=== PATIENT | male | born 1995 | race Caucasian/White ===

== ENCOUNTER 2019-07-20 09:10 | Inpatient (IN) | payer OTHER ==
[2019-07-20] MEDS ORDERED: SODIUM CHLORIDE 0.9% 1,000 ML IV ONE (09:23)
[2019-07-20] MEDS ORDERED: ONDANSETRON 4 MG/2 ML VIAL IVP STA (09:23)
[2019-07-20 10:11] LABS: Anion Gap 13 mmol/L; Blood Urea Nitrogen 14 mg/dL (9-20); Carbon Dioxide 25 mmol/L (22-30); Chloride 101 mmol/L (98-107); Glucose 103 mg/dL (74-99); Potassium 4.4 mmol/L (3.5-5.1); Sodium 139 mmol/L (137-145)
[2019-07-20 10:12] LABS: ALT 23 U/L (21-72); AST 17 U/L (17-59); African American GFR (CKD) >90 (>60 ml/min/1.73 sqM); Albumin 3.7 g/dL (3.5-5.0); Alkaline Phosphatase 84 U/L (38-126); Amylase 41 U/L (30-110); Calcium 9.1 mg/dL (8.4-10.2); Total Protein 7.3 g/dL (6.3-8.2)
--- NOTE | 2019-07-20 10:22 | ED ---
Abdominal Pain HPI - General Source: patient, family Mode of arrival: ambulatory Limitations: no limitations <Erin Morrow - Last Filed: 07/20/19 14:52> <Trang Webber - Last Filed: 07/22/19 22:01> - General Chief Complaint: Abdominal Pain Stated Complaint: vomiting abdominal pain Time Seen by Provider: 07/20/19 09:11 - History of Present Illness Initial Comments: 24-year-old male presenting for abdominal pain and vomiting of the upper abdomen. Patient states that he has had abdominal pain on and off for the past month. He states that pain is usually in the lower portion of his abdomen. Patient states he woke up today and had pain in the upper portion of his abdomen, more towards the right upper quadrant. Patient states that he is also felt warm but has not recorded a temperature. Admits to chills. Patient states he has had been vomiting for the past 12 hours. Patient states he has had loose stools on and off for the past month, denies bloody stools. Patient denies headache, or upper respiratory symptoms denies dysuria urgency frequency or testicular pain. Remaining review of systems negative upon arrival patient is not in acute distress (Erin Morrow) - Related Data Home Medications Medication Instructions Recorded Confirmed Cholecalciferol (Vitamin D3) 2,000 unit PO DAILY 07/20/19 07/20/19 [Vitamin D3] Allergies Allergy/AdvReac Type Severity Reaction Status Date / Time No Known Allergies Allergy Verified 07/22/19 14:24 Review of Systems ROS Other: All systems not noted in ROS Statement are negative. <Erin Morrow - Last Filed: 07/20/19 14:52> ROS Other: All systems not noted in ROS Statement are negative. <Trang Webber - Last Filed: 07/22/19 22:01> ROS Statement: Those systems with pertinent positive or pertinent negative responses have been documented in the HPI. Past Medical History Past Medical History: No Reported History History of Any Multi-Drug Resistant Organisms: None Reported Past Surgical History: No Surgical Hx Reported Past Psychological History: No Psychological Hx Reported Smoking Status: Never smoker Past Alcohol Use History: None Reported Past Drug Use History: None Reported <Erin Morrow - Last Filed: 07/20/19 14:52> General Exam Limitations: no limitations <Erin Morrow - Last Filed: 07/20/19 14:52> - General Exam Comments Initial Comments: General: The patient is awake and alert, in no distress Eye: +3 mm pupils are equal, round and reactive to light, extra-ocular movements are intact. No nystagmus. There is normal conjunctiva bilaterally. No signs of icterus. Ears, nose, mouth and throat: There are moist mucous membranes and no oral lesions. Neck: The neck is supple, there is no tenderness or JVD. Cardiovascular: There is a regular rate and rhythm. No murmur, rub or gallop is appreciated. Respiratory: Lungs are clear to auscultation, respirations are non-labored, breath sounds are equal. No wheezes, stridor, rales, or rhonchi. Gastrointestinal: Soft, non-distended, tender to palpation of the epigastric and the RUQ of the abdomen, minimal tenderness to palation with deep palpation of the lower abdomen, the remaining abdomen is without masses or organomegaly noted. There is no rebound or guarding present. Musculoskeletal: Normal ROM, no tenderness. Strength 5/5. Sensation intact. Radial pulses equal bilaterally 2+. Neurological: A&O x 3. CN II-XII intact grossly, There are no obvious motor or sensory deficits. Coordination appears grossly intact. Speech is normal. Skin: Skin is warm and dry and no rashes or lesions are noted. Psychiatric: Cooperative, appropriate mood & affect, normal judgment. (Erin Morrow) Course Vital Signs 07/20/19 07/20/19 07/20/19 09:13 12:30 13:36 Temperature 99.5 F Pulse Rate 100 101 H 97 Respiratory 18 18 18 Rate Blood Pressure 122/76 119/72 113/70 O2 Sat by Pulse 100 100 98 Oximetry Medical Decision Making - Lab Data Result diagrams: 07/20/19 09:54 07/20/19 09:54 <Erin Morrow - Last Filed: 07/20/19 14:52> - Lab Data Result diagrams: 07/22/19 09:03 07/20/19 09:54 <Trang Webber - Last Filed: 07/22/19 22:01> - Medical Decision Making 24-year-old male presented [facility] referred for evaluation of vomiting 12 hours. Tactile fever at home. Afebrile on arrival. Patient had minimal tenderness on abdominal exam, mostly right upper quadrant. Dr. young revealed leukocytosis. Ultrasound negative for acute process. However upon abdominal reevaluation given concern for the leukocytosis very deep palpation of the right lower quadrant reproduces pain at this time CT was obtained. Revealing a ruptured appendix with large abscess. Dr. Webber took critical findings, evaluated patient initiated blood cultures and antibiotics. She consulted surgery. Patient refuses pain medications stating that he does not have much pain at this time. Patient given zofran in ED and IV fluids. (Erin Morrow) - Lab Data Lab Results 07/20/19 07/20/19 07/20/19 Range/Units 09:54 09:54 10:11 WBC 19.2 H (3.8-10.6) k/uL RBC 4.92 (4.30-5.90) m/uL Hgb 13.7 (13.0-17.5) gm/dL Hct 41.9 (39.0-53.0) % MCV 85.1 (80.0-100.0) fL MCH 27.8 (25.0-35.0) pg MCHC 32.7 (31.0-37.0) g/dL RDW 12.2 (11.5-15.5) % Plt Count 311 (150-450) k/uL Neutrophils % 90 % Lymphocytes % 3 % Monocytes % 5 % Eosinophils % 0 % Basophils % 0 % Neutrophils # 17.3 H (1.3-7.7) k/uL Lymphocytes # 0.6 L (1.0-4.8) k/uL Monocytes # 1.0 (0-1.0) k/uL Eosinophils # 0.1 (0-0.7) k/uL Basophils # 0.0 (0-0.2) k/uL Sodium 139 (137-145) mmol/L Potassium 4.4 (3.5-5.1) mmol/L Chloride 101 (98-107) mmol/L Carbon Dioxide 25 (22-30) mmol/L Anion Gap 13 mmol/L BUN 14 (9-20) mg/dL Creatinine 1.02 (0.66-1.25) mg/dL Est GFR (CKD-EPI)AfAm >90 (>60 ml/min/1.73 sqM) Est GFR (CKD-EPI)NonAf >90 (>60 ml/min/1.73 sqM) Glucose 103 H (74-99) mg/dL Plasma Lactic Acid Bladimir (0.7-2.0) mmol/L Calcium 9.1 (8.4-10.2) mg/dL Total Bilirubin 1.0 (0.2-1.3) mg/dL AST 17 (17-59) U/L ALT 23 (21-72) U/L Alkaline Phosphatase 84 (38-126) U/L Total Protein 7.3 (6.3-8.2) g/dL Albumin 3.7 (3.5-5.0) g/dL Amylase 41 (30-110) U/L Lipase 52 (23-300) U/L Urine Color Yellow Urine Appearance Clear (Clear) Urine pH 5.5 (5.0-8.0) Ur Specific Lawrence 1.029 (1.001-1.035) Urine Protein 1+ H (Negative) Urine Glucose (UA) Negative (Negative) Urine Ketones 2+ H (Negative) Urine Blood Negative (Negative) Urine Nitrite Negative (Negative) Urine Bilirubin Negative (Negative) Urine Urobilinogen 2.0 (<2.0) mg/dL Ur Leukocyte Esterase Negative (Negative) Urine RBC 1 (0-5) /hpf Urine WBC 1 (0-5) /hpf Urine Mucus Few H (None) /hpf 07/20/19 Range/Units 13:19 WBC (3.8-10.6) k/uL RBC (4.30-5.90) m/uL Hgb (13.0-17.5) gm/dL Hct (39.0-53.0) % MCV (80.0-100.0) fL MCH (25.0-35.0) pg MCHC (31.0-37.0) g/dL RDW (11.5-15.5) % Plt Count (150-450) k/uL Neutrophils % % Lymphocytes % % Monocytes % % Eosinophils % % Basophils % % Neutrophils # (1.3-7.7) k/uL Lymphocytes # (1.0-4.8) k/uL Monocytes # (0-1.0) k/uL Eosinophils # (0-0.7) k/uL Basophils # (0-0.2) k/uL Sodium (137-145) mmol/L Potassium (3.5-5.1) mmol/L Chloride (98-107) mmol/L Carbon Dioxide (22-30) mmol/L Anion Gap mmol/L BUN (9-20) mg/dL Creatinine (0.66-1.25) mg/dL Est GFR (CKD-EPI)AfAm (>60 ml/min/1.73 sqM) Est GFR (CKD-EPI)NonAf (>60 ml/min/1.73 sqM) Glucose (74-99) mg/dL Plasma Lactic Acid Bladimir 1.6 (0.7-2.0) mmol/L Calcium (8.4-10.2) mg/dL Total Bilirubin (0.2-1.3) mg/dL AST (17-59) U/L ALT (21-72) U/L Alkaline Phosphatase (38-126) U/L Total Protein (6.3-8.2) g/dL Albumin (3.5-5.0) g/dL Amylase (30-110) U/L Lipase (23-300) U/L Urine Color Urine Appearance (Clear) Urine pH (5.0-8.0) Ur Specific Lawrence (1.001-1.035) Urine Protein (Negative) Urine Glucose (UA) (Negative) Urine Ketones (Negative) Urine Blood (Negative) Urine Nitrite (Negative) Urine Bilirubin (Negative) Urine Urobilinogen (<2.0) mg/dL Ur Leukocyte Esterase (Negative) Urine RBC (0-5) /hpf Urine WBC (0-5) /hpf Urine Mucus (None) /hpf Disposition Is patient prescribed a controlled substance at d/c from ED?: No Time of Disposition: 12:00 Decision to Admit Reason: Admit from EC Decision Date: 07/20/19 Decision Time: 13:09 <Erin Morrow - Last Filed: 07/20/19 14:52> <Trang Webber - Last Filed: 07/22/19 22:01> Clinical Impression: Vomiting, Nausea, Ruptured appendicitis, Abscess, appendix, Leukocytosis Disposition: ADMITTED IP TO THIS [facility] Condition: Stable
[2019-07-20 10:29] LABS: Basophils % (A) 0 %; Eosinophils # (A) 0.1 k/uL (0-0.7); Eosinophils % (A) 0 %; HCT 41.9 % (39.0-53.0); HGB 13.7 gm/dL (13.0-17.5); Lymphocytes # (A) 0.6 k/uL (1.0-4.8); Lymphocytes % (A) 3 %; MCH 27.8 pg (25.0-35.0); MCHC 32.7 g/dL (31.0-37.0); MCV 85.1 fL (80.0-100.0); Mean Platelet Volume 7.1; Monocytes % (A) 5 %; Neutrophils # (A) 17.3 k/uL (1.3-7.7); Neutrophils % (A) 90 %; Platelet Count 311 k/uL (150-450); RBC 4.92 m/uL (4.30-5.90); RDW 12.2 % (11.5-15.5); WBC 19.2 k/uL (3.8-10.6)
[2019-07-20 10:46] LABS: Appearance,Urine Clear (Clear); Bilirubin,Urine Negative (Negative); Blood,Urine Negative (Negative); Color,Urine Yellow; Glucose,Urine (UA) Negative (Negative); Ketones,Urine 2+ (Negative); Leukocyte Esterase,Urine Negative (Negative); Mucus,Urine Few /hpf; Nitrite,Urine Negative (Negative); PH, Urine 5.5 (5.0-8.0); Protein,Urine 1+ (Negative); RBC,Urine 1 /hpf (0-5); Specific Gravity,Urine 1.029 (1.001-1.035); WBC,Urine 1 /hpf (0-5)
[2019-07-20] MEDS ORDERED: DEXAMETHASONE SOD PHOSPHATE 10 MG/ML 1 ML VIAL IV STA (11:17)
--- NOTE | 2019-07-20 11:47 | US ---
EXAMINATION TYPE: US abdomen limited DATE OF EXAM: 07/20/2019 COMPARISON: NONE CLINICAL HISTORY: RUQ tenderness. Epigastric pain, nausea and vomiting x 2 days EXAM MEASUREMENTS: Liver Length: 12.9 cm Gallbladder Wall: 0.2 cm CBD: 0.3 cm Right Kidney: 8.8 x 5.3 x 3.5 cm Pancreas: wnl Liver: wnl Gallbladder: Approximately 2 to 3 mm nonmobile echogenic oval wall mass suggests wall polyp noted on posterior wall Evidence for sonographic Bloom's sign: no CBD: wnl Right Kidney: wnl IMPRESSION: No sonographic evidence of acute cholecystitis. Approximately 2-3 mm nonmobile density in the gallbladder appears as a small polyp.
--- NOTE | 2019-07-20 12:54 | CT ---
EXAMINATION TYPE: CT abdomen pelvis w con DATE OF EXAM: 07/20/2019 COMPARISON: Abdominal ultrasound of the same date. HISTORY: RLQ pain CT DLP: 526 mGycm Automated exposure control for dose reduction was used. TECHNIQUE: Helical acquisition of images was performed from the lung bases through the pelvis. CONTRAST: Performed without Oral Contrast and with IV Contrast, patient injected with 100 mL of Isovue 300. FINDINGS: LUNG BASES: No significant abnormality is appreciated. Pectus excavatum deformity is partially visual ized. LIVER/GB: Focal hypoattenuation in the liver is seen near the falciform ligament, a typical location for focal fatty infiltration. PANCREAS: No significant abnormality is seen. SPLEEN: No splenomegaly. ADRENALS: No nodule or thickening. KIDNEYS: Kidneys enhance and excrete symmetrically without hydronephrosis. ADENOPATHY: Prominent hyperdense lymph nodes in the right lower quadrant OSSEOUS STRUCTURES: No significant abnormality is seen. BOWEL: CT findings are most compatible with ruptured appendicitis. Although no free air is seen ther e is a large multiloculated extremely complex abscess with surrounding phlegmonous changes surroundin g the appendix. The visualized appendix measures up to 1.7 cm. The abscess measures at least 10.1 x 8 .2 x 5.8 cm however is favored to be much longer in craniocaudal dimension as it extends up the right hemicolon and is difficult to measure. Free fluid does track up the right lateral conal fascia and d own into the pelvis. There is surrounding hyperdensity such as on coronal image 36 that could represe nt surrounding hemorrhage in the peritoneal or clustered hyperdense adenopathy. The bowel in the low pelvis demonstrate small bowel feces sign of ileus and stacked upon one another. Reactive ileus is lyn spected. IMPRESSION: Acute ruptured appendicitis markedly complicated by an extensive multiloculated abscess m easuring over greater than 10 cm in length and extending up the right hemicolon with surrounding dania tonitis and possible adjacent hemorrhage versus hyperdense lymph nodes. Reactive ileus is also seen. Findings were conveyed to Dr. Webber (who will convey findings to the ordering provider) by Dr. Berlin galicia 12:50 PM on 07/20/2019.
[2019-07-20] MEDS ORDERED: MORPHINE SULFATE 4 MG/ML SYRINGE IV PRN (13:09)
[2019-07-20] MEDS ORDERED: ONDANSETRON 4 MG/2 ML VIAL IVP PRN (13:09)
[2019-07-20] MEDS ORDERED: NALOXONE 0.4 MG/ML 1 ML VIAL IV PRN (13:09)
[2019-07-20] MEDS ORDERED: PIPERACILLIN-TAZOBACTAM 3.375 GM in SODIUM CHLORIDE 0.9% 100 ML IVPB STA (13:15)
[2019-07-20] MEDS: SODIUM CHLORIDE 0.9% 1,000 ML IV SCH ×2 (13:25→20:52)
[2019-07-20 15:10] VITALS: BMI 20.9
[2019-07-20] MEDS ORDERED: PIPERACILLIN-TAZOBACTAM 3.375 GM in SODIUM CHLORIDE 0.9% 100 ML IVPB SCH (16:00)
[2019-07-20 18:07] LABS: Glucose,Whole Blood 132 mg/dL (75-99)
--- NOTE | 2019-07-20 20:20 | P.PN ---
Progress Note - Text Progress Note Date: 07/20/19 No peritonitis on exam. Soft. CT personally reviewed with extensive phlegmon. IR drainage versus surgical drainage described. Will need IV antibiotics. Currently pending infectious disease recommendations for PICC line as he has complicated perforated appendicitis with phlegmon.
[2019-07-20] MEDS: PIPERACILLIN-TAZOBACTAM 3.375 GM in SODIUM CHLORIDE 0.9% 100 ML IVPB SCH (23:40)
[2019-07-21] MEDS: SODIUM CHLORIDE 0.9% 1,000 ML IV SCH ×3 (05:04→21:15)
[2019-07-21] MEDS: PIPERACILLIN-TAZOBACTAM 3.375 GM in SODIUM CHLORIDE 0.9% 100 ML IVPB SCH ×3 (07:34→18:54)
[2019-07-21 07:46] LABS: Basophils % (A) 0 %; Eosinophils % (A) 0 %; HCT 38.6 % (39.0-53.0); HGB 12.2 gm/dL (13.0-17.5); Hypochromasia Slight; Lymphocytes # (A) 1.1 k/uL (1.0-4.8); Lymphocytes % (A) 5 %; MCH 27.3 pg (25.0-35.0); MCHC 31.7 g/dL (31.0-37.0); MCV 86.2 fL (80.0-100.0); Mean Platelet Volume 6.6; Monocytes # (A) 0.6 k/uL (0-1.0); Monocytes % (A) 3 %; Neutrophils # (A) 19.7 k/uL (1.3-7.7); Neutrophils % (A) 91 %; Platelet Count 385 k/uL (150-450); RBC 4.47 m/uL (4.30-5.90); RDW 11.9 % (11.5-15.5); WBC 21.5 k/uL (3.8-10.6)
[2019-07-21 07:47] LABS: INR 1.1 (<1.2); Prothrombin Time 11.8 sec (9.0-12.0)
--- NOTE | 2019-07-21 09:43 | P.GSHP ---
<Cally Lee A - Last Filed: 07/21/19 09:38> History of Present Illness H&P Date: 07/20/19 CHIEF COMPLAINT: Abdominal pain HISTORY OF PRESENT ILLNESS: 24-year-old male who presents to emergency room with a chief complaint of abdominal pain. Patient reports he has been experiencing pain on the right lower quadrant of his abdomen that radiates to the left side as well. This pain has been present for approximately three weeks. He reports nausea and vomiting for the past 2 days. PAST MEDICAL HISTORY: See list. PAST SURGICAL HISTORY: See list. MEDICATIONS: See list. ALLERGIES: See list. SOCIAL HISTORY: No illicit drug use. REVIEW OF SYSTEMS: CONSTITUTIONAL: Denies fever. Reports chills. HEENT: Denies blurred vision, vision changes, or eye pain. Denies hemoptysis ENDOCRINE: Denies heat or cold intolerance. CARDIOVASCULAR: Denies chest pain or pressure. RESPIRATORY: No shortness of breath. GASTROINTESTINAL: See HPI for pertinent findings NEURO: Denies history of seizures. PSYCH: No depression or suicidal ideation HEMATOLOGIC: Denies bleeding disorders. LYMPHATIC: The patient denies any lumps and bumps around the neck. GENITOURINARY: Denies any blood in urine or increased urinary frequency. MUSCULOSKELETAL: Denies myalgias. Denies joint swelling. Denies decreased range of motion beyond patients baseline. SKIN: Denies pruitis. Denies rash. PHYSICAL EXAM: VITAL SIGNS: Reviewed GENERAL: Well-developed in no acute distress. Pallor. HEENT: No sclera icterus. Extraocular movements grossly intact. Moist buccal mucosa. Head is atraumatic, normocephalic. Hears conversational speech. No nasal rose marie inage. NECK: Supple without lymphadenopathy. CHEST: Non-labored respirations and equal bilateral excursions. CARDIOVASCULAR: Regular rate with regular rhythm. Palpable 2+ radial pulses. ABDOMEN: Soft. Nondistended. Tenderness on palpation of right lower quadrant. MUSCULOSKELETAL: No clubbing, cyanosis or edema. NEUROLOGIC: No focal or lateralizing signs. Cranial nerves II through XII gr ossly intact. PSYCH: Appropriate affect. Alert and oriented to person, place and time. SKIN: Well perfused. Good skin turgor. LABORATORY DATA: WBC 19.2. Hemoglobin 13.7. White count 311. IMAGIN. Abdominal ultrasound: No sonographic evidence of acute cholecystitis. Approximate 2-3 mm nonmobile density in the gallbladder appears to be a small p olyp. 2. CT abdomen and pelvis: Acute ruptured appendicitis marked jump could find extensive multiloculated abscess measuring over greater than 10 cm in length extending up to the right hemicolon and turning peritonitis with possible adjacent hemorrhage first hyperdense lymph nodes. Reactive ileus is also seen. ASSESSMENT: 1. Abdominal pain 2. Acute ruptured appendicitis with extensive phlegmon 3. Leukocytosis PLAN: No immediate surgical intervention. Continue IV antibiotics. Monitor WBC. Consult infectious disease for recommendations. Patient will require appendectomy in approximately 4 weeks. Nurse practitioner note has been reviewed by physician. Signing provider agrees with the documented findings, assessment, and plan of care. Past Medical History Past Medical History: No Reported History Additional Past Medical History / Comment(s): Vitamin D deficiency History of Any Multi-Drug Resistant Organisms: None Reported Past Surgical History: No Surgical Hx Reported Past Anesthesia/Blood Transfusion Reactions: Unable to Obtain Additional Past Anesthesia/Blood Transfusion Reaction / Comment(s): Pt has never had anesthesia Past Psychological History: No Psychological Hx Reported Smoking Status: Never smoker Past Alcohol Use History: None Reported Past Drug Use History: None Reported - Past Family History Father Family Medical History: Unable to Obtain Mother Family Medical History: Musculoskeletal Disorder, Neurologic Disorder Additional Family Medical History / Comment(s): Mother has MS. Medications and Allergies Home Medications Medication Instructions Recorded Confirmed Type Cholecalciferol (Vitamin D3) 2,000 unit PO DAILY 07/20/19 07/20/19 History [Vitamin D3] Allergies Allergy/AdvReac Type Severity Reaction Status Date / Time No Known Allergies Allergy Verified 07/22/19 14:24 Surgical - Exam Vital Signs Temp Pulse Resp BP Pulse Ox 99.5 F 100 18 122/76 100 07/20/19 09:13 07/20/19 09:13 07/20/19 09:13 07/20/19 09:13 07/20/19 09:13 Results - Labs 07/21/19 07:17 07/20/19 09:54 Abnormal Lab Results - Last 24 Hours (Table) 07/20/19 07/20/19 07/20/19 Range/Units 09:54 09:54 10:11 WBC 19.2 H (3.8-10.6) k/uL Neutrophils # 17.3 H (1.3-7.7) k/uL Lymphocytes # 0.6 L (1.0-4.8) k/uL Glucose 103 H (74-99) mg/dL Urine Protein 1+ H (Negative) Urine Ketones 2+ H (Negative) Urine Mucus Few H (None) /hpf Diabetes panel 07/20/19 Range/Units 09:54 Sodium 139 (137-145) mmol/L Potassium 4.4 (3.5-5.1) mmol/L Chloride 101 (98-107) mmol/L Carbon Dioxide 25 (22-30) mmol/L BUN 14 (9-20) mg/dL Creatinine 1.02 (0.66-1.25) mg/dL Glucose 103 H (74-99) mg/dL Calcium 9.1 (8.4-10.2) mg/dL AST 17 (17-59) U/L ALT 23 (21-72) U/L Alkaline Phosphatase 84 (38-126) U/L Total Protein 7.3 (6.3-8.2) g/dL Albumin 3.7 (3.5-5.0) g/dL Calcium panel 07/20/19 Range/Units 09:54 Calcium 9.1 (8.4-10.2) mg/dL Albumin 3.7 (3.5-5.0) g/dL Pituitary panel 07/20/19 Range/Units 09:54 Sodium 139 (137-145) mmol/L Potassium 4.4 (3.5-5.1) mmol/L Chloride 101 (98-107) mmol/L Carbon Dioxide 25 (22-30) mmol/L BUN 14 (9-20) mg/dL Creatinine 1.02 (0.66-1.25) mg/dL Glucose 103 H (74-99) mg/dL Calcium 9.1 (8.4-10.2) mg/dL Adrenal panel 07/20/19 Range/Units 09:54 Sodium 139 (137-145) mmol/L Potassium 4.4 (3.5-5.1) mmol/L Chloride 101 (98-107) mmol/L Carbon Dioxide 25 (22-30) mmol/L BUN 14 (9-20) mg/dL Creatinine 1.02 (0.66-1.25) mg/dL Glucose 103 H (74-99) mg/dL Calcium 9.1 (8.4-10.2) mg/dL Total Bilirubin 1.0 (0.2-1.3) mg/dL AST 17 (17-59) U/L ALT 23 (21-72) U/L Alkaline Phosphatase 84 (38-126) U/L Total Protein 7.3 (6.3-8.2) g/dL Albumin 3.7 (3.5-5.0) g/dL Assessment and Plan (1) Abscess, appendix Current Visit: Yes Status: Acute Code(s): K35.33 - ACUTE APPENDICITIS WITH PERF AND LOC PERITONITIS, WITH ABSCS SNOMED Code(s): 67346045 (2) Leukocytosis Current Visit: Yes Status: Acute Code(s): D72.829 - ELEVATED WHITE BLOOD CELL COUNT, UNSPECIFIED SNOMED Code(s): 301030347 (3) Ruptured appendicitis Current Visit: Yes Status: Acute Code(s): K35.32 - ACUTE APPENDICITIS WITH PERF AND LOC PERITONITIS, W/O ABSCS SNOMED Code(s): 83873478 <Rosalie Cline N - Last Filed: 07/22/19 18:01> History of Present Illness CT of the abdomen and pelvis independently reviewed confirming ruptured appendicitis. Recommend full inpatient admission with IV antibiotics. Will need interval appendectomy in the future from clinical history. Surgical - Exam Vital Signs Temp Pulse Resp BP Pulse Ox 99.5 F 100 18 122/76 100 07/20/19 09:13 07/20/19 09:13 07/20/19 09:13 07/20/19 09:13 07/20/19 09:13 Results - Labs 07/22/19 09:03 07/20/19 09:54 Abnormal Lab Results - Last 24 Hours (Table) 07/22/19 Range/Units 09:03 WBC 12.2 H (3.8-10.6) k/uL RBC 4.16 L (4.30-5.90) m/uL Hgb 11.6 L (13.0-17.5) gm/dL Hct 35.7 L (39.0-53.0) % Neutrophils # 10.0 H (1.3-7.7) k/uL Microbiology - Last 24 Hours (Table) 07/20/19 13:19 Blood Culture - Preliminary Blood No Growth after 48 hours
[2019-07-21 09:59] LABS: Reticulocyte % 1.2 % (0.5-2.0)
--- NOTE | 2019-07-21 10:24 | P.PN ---
<Cally Lee - Last Filed: 07/21/19 10:21> Subjective Progress Note Date: 07/21/19 CHIEF COMPLAINT: Abdominal pain HISTORY OF PRESENT ILLNESS: Patient examined this morning at the bedside with Dr. Cline. Patient reports his abdominal pain is tolerable. Interventional radiology was consulted for possible drainage of abscess, but after reviewing films, radiology is unable to drain abscess. WBC today 21.5. He remains on Zosyn every 8 hours. Infectious disease has been consulted. Vital signs stable. He is afebrile. PHYSICAL EXAM: VITAL SIGNS: Reviewed GENERAL: Well-developed in no acute distress. Pallor. HEENT: No sclera icterus. Extraocular movements grossly intact. Moist buccal mucosa. Head is atraumatic, normocephalic. Hears conversational speech. No nasal drainage. NECK: Supple without lymphadenopathy. CHEST: Non-labored respirations and equal bilateral excursions. CARDIOVASCULAR: Regular rate with regular rhythm. Palpable 2+ radial pulses. ABDOMEN: Soft. Nondistended. Tenderness on palpation of right lower quadrant. MUSCULOSKELETAL: No clubbing, cyanosis or edema. NEUROLOGIC: No focal or lateralizing signs. Cranial nerves II through XII grossly intact. PSYCH: Appropriate affect. Alert and oriented to person, place and time. SKIN: Well perfused. Good skin turgor. ASSESSMENT: 1. Abdominal pain 2. Acute ruptured appendicitis with extensive phlegmon 3. Leukocytosis 4. Suspected iron deficiency anemia PLAN: Continue IV antibiotics. Monitor WBC. Infectious disease on consult. Patient to have PICC line placed Patient to undergo robotic drainage of abdominal abscess today with Dr. Cline Patient will require appendectomy in approximately 4 weeks. Obtain iron panel. Begin IV iron daily 3 days Nurse practitioner note has been reviewed by physician. Signing provider agrees with the documented findings, assessment, and plan of care. Objective - Vital Signs Vital signs: Vital Signs Temp 97.6 F 07/21/19 07:21 Pulse 68 07/21/19 07:21 Resp 16 07/21/19 07:21 BP 108/68 07/21/19 07:21 Pulse Ox 100 07/21/19 07:21 Intake & Output 07/20/19 07/21/19 07/21/19 18:59 06:59 18:59 Weight 58.967 kg Other: Voiding Method Toilet Toilet # Voids 0 - Labs CBC & Chem 7: 07/21/19 07:17 07/20/19 09:54 Labs: Abnormal Lab Results - Last 24 Hours (Table) 07/20/19 07/20/19 07/20/19 Range/Units 09:54 10:11 17:53 WBC 19.2 H (3.8-10.6) k/uL Hgb (13.0-17.5) gm/dL Hct (39.0-53.0) % Neutrophils # 17.3 H (1.3-7.7) k/uL Lymphocytes # 0.6 L (1.0-4.8) k/uL POC Glucose (mg/dL) 132 H (75-99) mg/dL Urine Protein 1+ H (Negative) Urine Ketones 2+ H (Negative) Urine Mucus Few H (None) /hpf 07/21/19 Range/Units 07:17 WBC 21.5 H (3.8-10.6) k/uL Hgb 12.2 L (13.0-17.5) gm/dL Hct 38.6 L (39.0-53.0) % Neutrophils # 19.7 H (1.3-7.7) k/uL Lymphocytes # (1.0-4.8) k/uL POC Glucose (mg/dL) (75-99) mg/dL Urine Protein (Negative) Urine Ketones (Negative) Urine Mucus (None) /hpf Assessment and Plan (1) Abscess, appendix Current Visit: Yes Status: Acute Code(s): K35.33 - ACUTE APPENDICITIS WITH PERF AND LOC PERITONITIS, WITH ABSCS SNOMED Code(s): 31714045 (2) Leukocytosis Current Visit: Yes Status: Acute Code(s): D72.829 - ELEVATED WHITE BLOOD CELL COUNT, UNSPECIFIED SNOMED Code(s): 656779073 (3) Ruptured appendicitis Current Visit: Yes Status: Acute Code(s): K35.32 - ACUTE APPENDICITIS WITH PERF AND LOC PERITONITIS, W/O ABSCS SNOMED Code(s): 84545706 <Rosalie Cline N - Last Filed: 07/22/19 18:01> Subjective As above, patient reevaluated this evening reports moderate improvement of abdominal pain. In fact he denies any further abdominal pain this evening. We'll hold off from surgery as patient is clinically improving. Objective - Vital Signs Vital signs: Vital Signs Temp 100.1 F H 07/22/19 16:31 Pulse 73 07/22/19 17:00 Resp 16 07/22/19 17:00 BP 111/57 07/22/19 17:00 Pulse Ox 98 07/22/19 17:00 Intake & Output 07/21/19 07/22/19 07/22/19 18:59 06:59 18:59 Intake Total 1300 Output Total 2 Balance 1298 Weight 58.967 kg Intake: IV 1300 Output: Estimated Blood Loss 2 Other: Voiding Method Toilet Toilet # Voids 3 1 3 - Labs CBC & Chem 7: 07/22/19 09:03 07/20/19 09:54 Labs: Abnormal Lab Results - Last 24 Hours (Table) 07/22/19 Range/Units 09:03 WBC 12.2 H (3.8-10.6) k/uL RBC 4.16 L (4.30-5.90) m/uL Hgb 11.6 L (13.0-17.5) gm/dL Hct 35.7 L (39.0-53.0) % Neutrophils # 10.0 H (1.3-7.7) k/uL Microbiology - Last 24 Hours (Table) 07/20/19 13:19 Blood Culture - Preliminary Blood No Growth after 48 hours
[2019-07-21] MEDS ORDERED: LIDOCAINE 1% INJ 10MG/ML (20 ML MDV) ONE (10:42)
[2019-07-21] MEDS ORDERED: LIDOCAINE 1% INJ 10MG/ML (20 ML MDV) SQ ONE (10:53)
[2019-07-21] MEDS: SODIUM FERRIC GLUCONAT-SUCROSE 125 MG in SODIUM CHLORIDE 0.9% 100 ML IVPB SCH (12:38)
--- NOTE | 2019-07-21 16:00 | IR ---
PICC LINE PLACEMENT: HISTORY: Infection requiring long-term antibiotic therapy PROCEDURE: Ultrasound and fluoroscopic guidance of PICC line placement. COMPLICATIONS: None ANESTHESIA: 1. 1% Lidocaine locally. FINDINGS/TECHNIQUE: The procedure was explained to the patient. The risks, complications, benefits and alternatives were discussed and any questions were answered. Informed consent was obtained. The patient was placed supine on the fluoroscopic table and prepped and draped in the usual sterile fash ion. Utilizing a 21 gauge needle and sonographic and fluoroscopic guidance, access in the left basi lic vein was achieved and there is placement of a 0.018 guidewire. The vein is patent. A 4-F sheath was placed over the guidewire. The guidewire and dilator were removed and a 4-F. PICC line was plac ed through the sheath with the tip at the level of the SVC. The sheath was removed, the catheter was flushed and sutured into position. The patient was stable throughout the procedure and remained sta ble upon discharge from the Department of Radiology. The vein puncture was patent under ultrasound. A jackson scale image was obtained to document patency of the vein punctured. All elements of the maximal barrier technique were utilized. FLUOROSCOPY TIME: 0.1 minutes and one image submitted IMPRESSION: Successful PICC line placement under ultrasound and fluoroscopic guidance.
[2019-07-21 17:47] LABS: % Iron Saturation 31.15 (15.00-50.00); Ferritin 856.9 ng/mL (22.0-322.0)
--- NOTE | 2019-07-21 18:02 | P.PN ---
Progress Note - Text Progress Note Date: 07/21/19 Patient reports feeling fine from this morning. Mother is at bedside. "I have no belly pain!" Patient and family wishes to differ surgery as he reports moderate clinical improvement since admission. May start clears.
[2019-07-21] MEDS ORDERED: PIPERACILLIN-TAZOBACTAM 3.375 GM in SODIUM CHLORIDE 0.9% 100 ML IVPB SCH (23:34)
--- NOTE | 2019-07-22 00:04 | P.CONS ---
History of Present Illness - Reason for Consult Consult date: 07/21/19 Ruptured appendicitis and abdominal abscess Requesting physician: Rosalie Cline - Chief Complaint Abdominal pain off and on and vomiting x one day - History of Present Illness Patient is a 24-year-old male presenting to the ER at [facility] with a chief complaints of abdominal pain which has been off and on for almost a month pain initially has been mostly lower abdominal area however recently has been complaining of some upper abdominal pain as well as pain is mostly sharp and can be as high as 10 or 10 in severity with no radiation patient started having vomiting yesterday and the patient felt warm, with these symptoms the patient presented to the ER with the patient was evaluated by the physician on presentation he did have a low-grade fever of 99 patient did have elevated white count of 19,000 patient did have a CT of abdominal pelvis which did shows evidence of a ruptured appendicitis with multiloculated complicated abscess almost 10 cm in diameter patient has been started on Zosyn and infectious disease was consulted for further recommendation regarding antibiotic therapy Review of Systems Positive point has been mentioned in the HPI rest of the systems are negative Past Medical History Past Medical History: No Reported History Additional Past Medical History / Comment(s): Vitamin D deficiency History of Any Multi-Drug Resistant Organisms: None Reported Past Surgical History: No Surgical Hx Reported Past Anesthesia/Blood Transfusion Reactions: Unable to Obtain Additional Past Anesthesia/Blood Transfusion Reaction / Comm: Pt has never had anesthesia Past Psychological History: No Psychological Hx Reported Smoking Status: Never smoker Past Alcohol Use History: None Reported Past Drug Use History: None Reported - Past Family History Father Family Medical History: Unable to Obtain Mother Family Medical History: Musculoskeletal Disorder, Neurologic Disorder Additional Family Medical History / Comment(s): Mother has MS. Medications and Allergies Home Medications Medication Instructions Recorded Confirmed Type Cholecalciferol (Vitamin D3) 2,000 unit PO DAILY 07/20/19 07/20/19 History [Vitamin D3] Allergies Allergy/AdvReac Type Severity Reaction Status Date / Time No Known Allergies Allergy Verified 07/20/19 09:34 Physical Exam Vitals: Vital Signs Temp Pulse Pulse Resp BP BP Pulse Ox 07/21/19 07:21 97.6 F 68 16 108/68 100 07/21/19 01:26 97.7 F 93 18 106/70 100 07/20/19 19:36 97.5 F L 74 14 96/58 99 07/20/19 15:36 93 18 07/20/19 14:59 98.8 F 93 18 108/70 96 07/20/19 13:36 97 18 113/70 98 Intake and Output 07/20/19 07/21/19 07/21/19 22:59 06:59 14:59 Other: Voiding Method Toilet # Voids 1 0 Weight 58.967 kg GENERAL DESCRIPTION: Young male lying in bed, no distress. No tachypnea or accessory muscle of respiration use. HEENT: Shows Pallor , no scleral icterus. Oral mucous membrane is dry. No pharyngeal erythema or thrush NECK: Trachea central, no thyromegaly. LUNGS: Unlabored breathing. Clear to auscultation anteriorly. No wheeze or crackle. HEART: S1, S2, regular rate and rhythm. No loud murmur ABDOMEN: Soft, mild right lower quadrant tenderness ,no guarding or rigidity, no organomegaly EXTREMITIES: No edema of feet. SKIN: No rash, no masses palpable. NEUROLOGICAL: The patient is awake, alert, oriented x3, mood and affect normal. Results CBC & Chem 7: 07/21/19 07:17 07/20/19 09:54 Labs: Abnormal Lab Results - Last 24 Hours (Table) 07/20/19 07/21/19 Range/Units 17:53 07:17 WBC 21.5 H (3.8-10.6) k/uL Hgb 12.2 L (13.0-17.5) gm/dL Hct 38.6 L (39.0-53.0) % Neutrophils # 19.7 H (1.3-7.7) k/uL POC Glucose (mg/dL) 132 H (75-99) mg/dL Assessment and Plan Assessment: 1-patient presented to the hospital with abdominal pain nausea vomiting and fever in this patient who did have evidence of ruptured appendicitis and intra- abdominal abscess likely organism we need to cover will be the enteric gram- negative both aerobes and anaerobes, in view of extensive infection the patient will benefit from either CT-guided or surgical drainage of this abscess with the fluid should be sent for Gram stain and culture to help with microbiological diagnosis (1) Intra-abdominal abscess Current Visit: Yes Status: Acute Code(s): K65.1 - PERITONEAL ABSCESS SNOMED Code(s): 27195409 (2) Ruptured appendicitis Current Visit: Yes Status: Acute Code(s): K35.32 - ACUTE APPENDICITIS WITH PERF AND LOC PERITONITIS, W/O ABSCS SNOMED Code(s): 08558413 Plan: 1-Zosyn 3.375 g every 8 hour 2-await surgical drainage of this abscess We will follow on clinical condition and cultures to further adjust medication if needed Thank you for this consultation will follow this patient with you Time with Patient: Greater than 30
[2019-07-22] MEDS: PIPERACILLIN-TAZOBACTAM 3.375 GM in SODIUM CHLORIDE 0.9% 100 ML IVPB SCH ×3 (02:27→17:59)
[2019-07-22] MEDS: SODIUM FERRIC GLUCONAT-SUCROSE 125 MG in SODIUM CHLORIDE 0.9% 100 ML IVPB SCH (09:15)
[2019-07-22 09:26] LABS: Basophils # (A) 0.1 k/uL (0-0.2); Basophils % (A) 1 %; Eosinophils # (A) 0.1 k/uL (0-0.7); Eosinophils % (A) 1 %; HCT 35.7 % (39.0-53.0); HGB 11.6 gm/dL (13.0-17.5); Hypochromasia Slight; Lymphocytes # (A) 1.3 k/uL (1.0-4.8); Lymphocytes % (A) 11 %; MCH 27.8 pg (25.0-35.0); MCHC 32.4 g/dL (31.0-37.0); MCV 85.8 fL (80.0-100.0); Mean Platelet Volume 6.8; Monocytes # (A) 0.6 k/uL (0-1.0); Monocytes % (A) 5 %; Neutrophils % (A) 82 %; Platelet Count 317 k/uL (150-450); RBC 4.16 m/uL (4.30-5.90); WBC 12.2 k/uL (3.8-10.6)
--- NOTE | 2019-07-22 11:42 | P.DS ---
<JesusCally Josephine - Last Filed: 07/22/19 11:38> Providers Expected date of discharge: 07/22/19 - Discharge Diagnosis(es) (1) Abscess, appendix Status: Acute (2) Leukocytosis Status: Acute (3) Ruptured appendicitis Status: Acute Hospital Course: 24-year-old male who presented to emergency room with a chief complaint of abdominal pain. Patient reports he has been experiencing pain on the right lower quadrant of his abdomen that radiates to the left side as well. This pain has been present for approximately three weeks. He reports nausea and vomiting for the past 2 days. Patient was found to have acute ruptured appendicitis with extensive phlegmon. Infectious disease was consulted during hospitalization for evaluation. Patient received a PICC line and will require IV antibiotics at the time of discharge. Interventional radiology was consulted for possible drainage of phlegmon but was unable to perform secondary to extensive abscess with loculations. Patient was tentatively scheduled for surgical drainage of abscess but patient's clinical condition improved significantly and patient and his family decided to hold off on any surgical intervention. The patient was deemed stable for discharge today per Dr. Cline. He is to be discharged home on IV antibiotics. He'll follow-up with Dr. Cline outpatient and will require eventual appendectomy. Discharge Diagnosis: 1. Abdominal pain 2. Acute ruptured appendicitis with extensive phlegmon 3. Leukocytosis Nurse practitioner note has been reviewed by physician. Signing provider agrees with the documented findings, assessment, and plan of care. Patient Condition at Discharge: Stable Plan - Discharge Summary Discharge Rx Participant: No New Discharge Prescriptions: New Acetaminophen Tab [Tylenol Tab] 650 mg PO Q4H PRN #30 tablet PRN Reason: Pain No Action Cholecalciferol (Vitamin D3) [Vitamin D3] 2,000 unit PO DAILY Discharge Medication List Cholecalciferol (Vitamin D3) [Vitamin D3] 2,000 unit PO DAILY 07/20/19 [History] Acetaminophen Tab [Tylenol Tab] 650 mg PO Q4H PRN #30 tablet 07/25/19 [Rx] Follow up Appointment(s)/Referral(s): Rosalie Cline MD [STAFF PHYSICIAN] - 08/09/19 4:30 pm [facility], [NON-STAFF] - [facility] [Primary Care Provider] - 07/29/19 8:00 am [facility], [REFERRING] - Sherita Mercedes MD [STAFF PHYSICIAN] - 1 Week (Office will schedule follow up date at first IV infusion appointment) Patient Instructions/Handouts: Peripherally Inserted Central Catheters and Midline Catheters (DC), Laparoscopic Appendectomy (DC) Activity/Diet/Wound Care/Special Instructions: MAY BE DISCHARGED WHEN ANTIBIOTIC ARRANGEMENTS ARE FINALIZED IV antibiotics are being supplied through [facility] and will be delivered on: 07/27/19 in the morning. [facility] will meet patient at home the morning after discharge to begin IV infusions. Discharge Disposition: HOME WITH HOME HEALTH SERVICES <Rosalie Cline - Last Filed: 07/28/19 17:27> Providers Date of admission: 07/20/19 13:34 Attending physician: Rosalie Cline Consults: 07/20/19 16:58 Consult Physician Routine Consulting Provider: Sherita Mercedes Consult Reason/Comments: Ruptured appendicitis Do you want consulting provider notified?: Yes Primary care physician: [facility] - Discharge Diagnosis(es) (1) Sepsis Status: Acute (2) Ileus Status: Acute (3) Acute phlegmonous appendicitis Status: Acute (4) Abscess, appendix Status: Acute (5) Intra-abdominal abscess Status: Acute (6) Leukocytosis Status: Acute (7) Nausea Status: Acute (8) Ruptured appendicitis Status: Acute (9) Vomiting Status: Acute (10) Iron deficiency anemia due to dietary causes Status: Acute (11) Iron deficiency Status: Acute Hospital Course: Discharge was held per recommendation of infectious disease where surgical intervention was performed for drainage of intra-abdominal fluid collection. Please see updated discharge summary 07/25/2019.
[2019-07-22] MEDS: SODIUM CHLORIDE 0.9% 1,000 ML IV SCH (11:53)
--- NOTE | 2019-07-22 13:16 | P.HPADDEND ---
H&P Addendum H&P Addendum Date: 07/22/19 I had discussion with infectious disease provider. Given the large fluid collection within the abdomen despite the patient's improved clinical course, surgical drainage for intra-abdominal abscesses being requested by infectious disease team to tailor antibiotic management. Benefits and risks of procedure was thoroughly described to the patient including his mother and grandparents at bedside. We'll proceed with drainage of intra-abdominal abscess with cultures and placement of PABLO drain. Discharge was held
[2019-07-22] MEDS ORDERED: IV FLUID CONTINUATION 400 ML IV ONE (14:32)
[2019-07-22] MEDS ORDERED: DEXAMETHASONE SOD PHOS (MDV) 100 MG/10 ML VIAL IVP ONE (14:43)
[2019-07-22] MEDS ORDERED: ONDANSETRON 4 MG/2 ML VIAL IVP ONE (14:44)
[2019-07-22] MEDS ORDERED: MIDAZOLAM 2 MG/2 ML VIAL IVP ONE (14:44)
[2019-07-22] MEDS ORDERED: HEPARIN SODIUM,PORCINE 5,000 UNIT/ML 1 ML VIAL SQ ONE (14:50)
[2019-07-22] MEDS ORDERED: MIDAZOLAM 2 MG/2 ML VIAL ONE (15:22)
[2019-07-22] MEDS ORDERED: ROCURONIUM BROMIDE 10 MG/ML 10 ML VIAL IV ONE (15:22)
[2019-07-22] MEDS ORDERED: LIDOCAINE 1% INJ 10MG/ML (20 ML MDV) ONE ×2 (15:22)
[2019-07-22] MEDS ORDERED: GLYCOPYRROLATE 0.2 MG/ML 2 ML VIAL ONE (15:22)
[2019-07-22] MEDS ORDERED: NEOSTIGMINE 1 MG/ML 10 ML VIAL ONE (15:22)
[2019-07-22] MEDS ORDERED: SUCCINYLCHOLINE CHLORIDE 100 MG/5 ML SYR IV ONE (15:22)
[2019-07-22] MEDS ORDERED: PROPOFOL 10 MG/ML 20 ML VIAL IV ONE (15:22)
[2019-07-22] MEDS ORDERED: LIDOCAINE 1%-EPI 1:100,000 20 ML VIAL SQ ONE (15:46)
[2019-07-22] MEDS ORDERED: LACTATED RINGERS 1,000 ML IV ONE (15:50)
[2019-07-22] MEDS ORDERED: SODIUM CHLORIDE 0.9% 50 ML with ceFAZolin 2,000 MG IV ONE ×2 (15:54)
--- NOTE | 2019-07-22 16:32 | P.OP ---
Date of Procedure: 07/22/19 Description of Procedure: Date of Procedure: 07/22/19 SURGEON: ARVIND BECFKORD MD Preoperative Diagnosis: 1. Right lower quadrant abdominal pain 2. Ruptured appendicitis with phlegmon 3. Chronic iron deficiency anemia 4. Sepsis due to appendicitis 5. Vitamin D deficiency Postoperative Diagnosis: 1. Right lower quadrant abdominal pain 2. Ruptured appendicitis with phlegmon 3. Chronic iron deficiency anemia 4. Sepsis due to appendicitis 5. Vitamin D deficiency 6. Peritoneal adhesions due to infection. 7. Abdominal ascites Procedure(s) Performed: 1. Robotic-assisted daVinci Xi laparoscopic lysis of adhesions over 30 minutes 2. Robotic-assisted daVinci Xi laparoscopic drainage of peritoneal fluid Anesthesia: GETA, local Estimated Blood Loss (ml): 5 Pathology: other (Anaerobic and aerobic cultures peritoneal fluid, cell cytology) Condition: stable Disposition: floor Operative Findings: 1. Abdominal ascites without purulent peritonitis 2. Gallbladder unremarkable in appearance 3. Localized phlegmon right lower quadrant of concrete consistency prohibiting dissection into the appendix 4. No findings of complete small or large bowel obstruction INDICATIONS: The patient is a 24-year-old male who presents with right lower quadrant abdominal pain, ruptured appendicitis with phlegmon including sepsis. Surgical intervention was described in detail. Benefits and risks, including infection, open surgery, and possibility for additional surgery was discussed at length. Informed consent was obtained. All questions of the patient and family were answered. DESCRIPTION: The patient was transferred to the operating room and placed in supine position. The patient had previously voided. The abdomen was then prepped and draped in standard sterile fashion as Ioban was placed along the abdomen to minimize any contamination of skin floor. After a timeout protocol was performed, attention was then brought to the left upper quadrant whereby a 0 degree 5 mm laparoscopic trocar entry was performed. The abdominal cavity was entered and insufflated to 15 mmHg pressure, which was tolerated well. Diagnostic laparoscopy demonstrated no injury to bowel, viscera or mesentery. Adhesions were confirmed of the right lower quadrant of omentum. Localized phlegmon was found. Next a robotic 8-mm trocar was placed along the right upper quadrant, 15-cm superior from the pelvis. A 8 mm port was placed along the left lower quadrant and another 8-mm port along the epigastrium. Ports were placed 10 cm apart from each other including 15-20 cm away from the target anatomy of the right pelvis. The patient was then placed in Trendelenburg position, at least 14 and right side up at least 6. The robotic da Mariposa XI system was primed and docked from the left side of the patient. Using atraumatic graspers and vessel sealer, the robotic system was docked and primed as described. Instruments were interchanged by the cashier assistant including graspers, robotic stapler and vessel sealer. Next, attention was brought to identify the cecum. A systematic view within the abdominal cavity was started with the small bowel which was remarkable for abdominal ascites without purulent peritonitis. Gallbladder was unremarkable in appearance. Localized phlegmon right lower quadrant was found of concrete consistency prohibiting dissection into the appendix. No findings of complete small or large bowel obstruction was found. Peritoneal fluid of 50-mL was aspirated from the abdomen. The robot was undocked. I re-scrubbed into the case. All instruments and pneumoperitoneum were evacuated from the abdominal cavity. Local anesthetic was infiltrated to all wounds for postop analgesia. All inc isions were also cleansed with diluted hydrogen peroxide. Exofin glue was applied to the rest of the skin incisions. The patient had tolerated the procedure well. The patient was extubated successfully. The patient was transferred to the postanesthesia care unit in stable condition.
[2019-07-22] MEDS ORDERED: HYDROcodone/APAP 5-325MG 1 EACH TAB PO PRN (16:34)
[2019-07-22] MEDS ORDERED: KETOROLAC 30 MG/ML 1 ML VIAL IVP PRN (16:34)
[2019-07-22] MEDS ORDERED: METOCLOPRAMIDE 5 MG/ML 2 ML VIAL IVP PRN (16:34)
--- NOTE | 2019-07-22 18:38 | PN ---
PROGRESS NOTE DATE OF SERVICE: 07/22/2019 REASON FOR FOLLOWUP: Abdominal abscess from ruptured appendicitis. INTERVAL HISTORY: The patient is currently afebrile. The patient is breathing comfortably. The patient denies having any worsening abdominal pain. No nausea, no vomiting, no diarrhea. PHYSICAL EXAMINATION: Blood pressure 122/70 with a pulse of 80, temperature 98.8. He is 98% on room air. General description is a young male lying in bed in no distress. RESPIRATORY SYSTEM: Unlabored breathing. Clear to auscultation anteriorly. HEART: S1, S2. Regular rate and rhythm. ABDOMEN: Soft. No tenderness. EXTREMITIES: No edema of the feet. LABS/IMAGING: Hemoglobin 11.6, white count 12.2. CT was reviewed with the radiologist. The patient did have extensive formation and abscess, multiloculated. DIAGNOSTIC IMPRESSION AND PLAN: Patient admitted to hospital with abdominal pain and has been diagnosed with ruptured appendicitis with multiloculated abscess. In view of the extensive infection, the patient would benefit from surgical drainage of this abscess to help heal this infection and get a microbiological diagnosis. This was discussed in detail with the patient's family and with the surgeon, who will be seeing the patient. Continue with supportive care. MMODL / IJN: [id number] /
[2019-07-22 18:48] LABS: Appearance,BF Bloody; Color,BF Red; Nucleated Cells, Body Fluid 24166 /uL; RBC, Body Fluid 500 /uL
[2019-07-22 19:05] LABS: Mononuclear WBC,Body Fluid 72 %; Polynuclear WBC,Body Fluid 26 %; Total Cells Counted,Body Fluid 100
[2019-07-23] MEDS: SODIUM CHLORIDE 0.9% 1,000 ML IV SCH ×4 (01:17→17:27)
[2019-07-23] MEDS: PIPERACILLIN-TAZOBACTAM 3.375 GM in SODIUM CHLORIDE 0.9% 100 ML IVPB SCH ×3 (01:17→17:26)
[2019-07-23 06:57] LABS: Basophils % (A) 0 %; Eosinophils # (A) 0.1 k/uL (0-0.7); Eosinophils % (A) 0 %; HGB 12.7 gm/dL (13.0-17.5); Hypochromasia Slight; Lymphocytes % (A) 8 %; MCH 28.1 pg (25.0-35.0); MCHC 32.7 g/dL (31.0-37.0); MCV 85.8 fL (80.0-100.0); Mean Platelet Volume 7.1; Monocytes # (A) 0.7 k/uL (0-1.0); Monocytes % (A) 5 %; Neutrophils # (A) 10.4 k/uL (1.3-7.7); Neutrophils % (A) 85 %; Platelet Count 381 k/uL (150-450); RBC 4.54 m/uL (4.30-5.90); RDW 11.9 % (11.5-15.5); WBC 12.2 k/uL (3.8-10.6)
[2019-07-23] MEDS: ENOXAPARIN 30 MG/0.3 ML SYRINGE SQ SCH (08:30)
[2019-07-23] MEDS: SODIUM FERRIC GLUCONAT-SUCROSE 125 MG in SODIUM CHLORIDE 0.9% 100 ML IVPB SCH (09:01)
--- NOTE | 2019-07-23 10:16 | P.PN ---
Subjective Progress Note Date: 07/23/19 Principal diagnosis: Appendiceal abscess/phlegmon Patient underwent laparoscopic drainage appendiceal abscess yesterday. Feeling better today. Denies any significant pain. He is afebrile. White blood cell count 12. Gram stain without organisms thus far. Cultures pending. Objective - Vital Signs Vital signs: Vital Signs Temp 97.4 F L 07/23/19 07:00 Pulse 69 07/23/19 07:00 Resp 18 07/23/19 07:00 BP 114/75 07/23/19 07:00 Pulse Ox 100 07/23/19 07:00 Intake & Output 07/22/19 07/23/19 07/23/19 18:59 06:59 18:59 Intake Total 1300 250 325 Output Total 202 Balance 1098 250 325 Weight 58.967 kg Intake: IV 1300 Intake, IV Titration 250 Amount Sodium Chloride 0.9% 1, 250 000 ml @ 130 mls/hr IV . Q7H42M [facility], [facility]1983 Rx#:[id number] Oral 325 Output: Urine 200 Estimated Blood Loss 2 Other: Voiding Method Toilet Toilet # Voids 3 3 - Exam Abdomen: Soft, nondistended, mild incisional tenderness, mild right lower quadrant tenderness - Labs CBC & Chem 7: 07/23/19 06:27 07/20/19 09:54 Labs: Abnormal Lab Results - Last 24 Hours (Table) 07/23/19 Range/Units 06:27 WBC 12.2 H (3.8-10.6) k/uL Hgb 12.7 L (13.0-17.5) gm/dL Neutrophils # 10.4 H (1.3-7.7) k/uL Microbiology - Last 24 Hours (Table) 07/22/19 16:12 Gram Stain - Preliminary Peritoneal Fluid Body Fluid Culture - Preliminary 07/20/19 13:19 Blood Culture - Preliminary Blood No Growth after 48 hours Assessment and Plan (1) Abscess, appendix Narrative/Plan: Patient doing fairly well after recent laparoscopic drainage. Continue diet. Continue IV antibiotics. Follow cultures. Current Visit: Yes Status: Acute Code(s): K35.33 - ACUTE APPENDICITIS WITH PERF AND LOC PERITONITIS, WITH ABSCS SNOMED Code(s): 48602860
[2019-07-24] MEDS: PIPERACILLIN-TAZOBACTAM 3.375 GM in SODIUM CHLORIDE 0.9% 100 ML IVPB SCH ×3 (01:17→17:27)
[2019-07-24] MEDS: SODIUM CHLORIDE 0.9% 1,000 ML IV SCH ×3 (06:42→16:44)
[2019-07-24] MEDS: ENOXAPARIN 30 MG/0.3 ML SYRINGE SQ SCH (07:11)
[2019-07-24 07:14] LABS: Basophils # (A) 0.1 k/uL (0-0.2); Basophils % (A) 1 %; Eosinophils # (A) 0.2 k/uL (0-0.7); Eosinophils % (A) 2 %; HGB 12.1 gm/dL (13.0-17.5); Hypochromasia Moderate; Lymphocytes # (A) 1.8 k/uL (1.0-4.8); Lymphocytes % (A) 19 %; MCH 27.5 pg (25.0-35.0); MCHC 31.8 g/dL (31.0-37.0); MCV 86.5 fL (80.0-100.0); Mean Platelet Volume 6.5; Monocytes # (A) 0.5 k/uL (0-1.0); Monocytes % (A) 5 %; Neutrophils # (A) 6.8 k/uL (1.3-7.7); Neutrophils % (A) 72 %; Platelet Count 352 k/uL (150-450); RBC 4.39 m/uL (4.30-5.90); RDW 12.1 % (11.5-15.5); WBC 9.4 k/uL (3.8-10.6)
--- NOTE | 2019-07-24 09:53 | P.PN ---
Subjective Progress Note Date: 07/24/19 Principal diagnosis: Appendiceal abscess/phlegmon Patient doing well today. No new complaints. Pain is well-controlled. He is ablating. Tolerating diet. Objective - Vital Signs Vital signs: Vital Signs Temp 97.9 F 07/24/19 07:00 Pulse 71 07/24/19 07:00 Resp 18 07/24/19 07:00 BP 114/78 07/24/19 07:00 Pulse Ox 99 07/24/19 07:00 Intake & Output 07/23/19 07/24/19 07/24/19 19:59 06:59 18:59 Intake Total Balance Intake: Intake, IV Titration Amount Piperacillin-Tazobactam 3 .375 gm In Sodium Chloride 0.9% 100 ml @ 25 mls/hr IVPB Q8H [facility] Rx#: [id number] Sodium Chloride 0.9% 1, 000 ml @ 130 mls/hr IV . Q7H42M [facility] Rx#:[id number] Sodium Ferric Gluconat- Sucrose 125 mg In Sodium Chloride 0.9% 100 ml @ 100 mls/hr IVPB DAILY [facility] Rx#:[id number] Oral Other: Voiding Method - Exam Abdomen: Soft, nondistended, mild tenderness right lower quadrant, incisions clean and dry - Labs CBC & Chem 7: 07/24/19 06:35 07/20/19 09:54 Labs: Abnormal Lab Results - Last 24 Hours (Table) 07/24/19 Range/Units 06:35 Hgb 12.1 L (13.0-17.5) gm/dL Hct 38.0 L (39.0-53.0) % Microbiology - Last 24 Hours (Table) 07/22/19 16:12 Gram Stain - Preliminary Peritoneal Fluid Body Fluid Culture - Preliminary 07/20/19 13:19 Blood Culture - Preliminary Blood No Growth after 72 hours Assessment and Plan (1) Abscess, appendix Narrative/Plan: Continue antibiotics. Await cultures. Continue diet as tolerated. Current Visit: Yes Status: Acute Code(s): K35.33 - ACUTE APPENDICITIS WITH PERF AND LOC PERITONITIS, WITH ABSCS SNOMED Code(s): 42095169
--- NOTE | 2019-07-24 23:13 | PN ---
PROGRESS NOTE DATE OF SERVICE: 07/24/2019. REASON FOR FOLLOW UP: Ruptured appendicitis and intraabdominal abscess. INTERVAL HISTORY: The patient is currently afebrile. The patient is breathing comfortably. The patient denies having any chest pain. No shortness of breath or cough. No nausea, no vomiting. Abdominal pain. No diarrhea. PHYSICAL EXAMINATION: Blood pressure is 111/67 with a pulse of 59, temperature 98.1. He is 98% on room air. General description is a middle-aged male lying in bed in no distress. Respiratory system: Unlabored breathing, clear to auscultation anteriorly. Heart S1, S2. Regular rate and rhythm. Abdomen soft. No tenderness. Extremities: No edema of the feet. LABS: Hemoglobin is 12.1, white count 9.4. Abdominal culture so far pending. DIAGNOSTIC IMPRESSION AND PLAN: Patient with ruptured appendicitis with abdominal abscess status post laparoscopic drainage. The patient is currently covered with Zosyn. White count normalized. Antibiotic will be switched over to Invanz 1 g daily for another 2 weeks and close outpatient followup thank condition. MMODL / IJN: [id number] /
[2019-07-25] MEDS: PIPERACILLIN-TAZOBACTAM 3.375 GM in SODIUM CHLORIDE 0.9% 100 ML IVPB SCH ×3 (01:50→17:49)
[2019-07-25] MEDS: SODIUM CHLORIDE 0.9% 1,000 ML IV SCH ×3 (01:50→13:42)
[2019-07-25 07:24] LABS: Basophils # (A) 0.1 k/uL (0-0.2); Basophils % (A) 1 %; Eosinophils # (A) 0.3 k/uL (0-0.7); Eosinophils % (A) 3 %; HCT 42.9 % (39.0-53.0); HGB 13.4 gm/dL (13.0-17.5); Hypochromasia Moderate; Lymphocytes # (A) 1.6 k/uL (1.0-4.8); Lymphocytes % (A) 15 %; MCHC 31.2 g/dL (31.0-37.0); MCV 86.6 fL (80.0-100.0); Mean Platelet Volume 6.4; Monocytes # (A) 0.4 k/uL (0-1.0); Monocytes % (A) 4 %; Neutrophils # (A) 8.3 k/uL (1.3-7.7); Neutrophils % (A) 76 %; Platelet Count 374 k/uL (150-450); RBC 4.95 m/uL (4.30-5.90); RDW 12.3 % (11.5-15.5); WBC 10.8 k/uL (3.8-10.6)
[2019-07-25] MEDS: ENOXAPARIN 30 MG/0.3 ML SYRINGE SQ SCH (07:33)
--- NOTE | 2019-07-25 10:46 | P.DS ---
<LeeCally Josephine - Last Filed: 07/25/19 10:44> Providers Expected date of discharge: 07/25/19 - Discharge Diagnosis(es) (1) Abscess, appendix Status: Acute (2) Leukocytosis Status: Acute (3) Ruptured appendicitis Status: Acute Hospital Course: 24-year-old male who presented to emergency room with a chief complaint of abdominal pain. Patient reports he has been experiencing pain on the right lower quadrant of his abdomen that radiates to the left side as well. This pain has been present for approximately three weeks. He reports nausea and vomiting for the past 2 days. Patient was found to have acute ruptured appendicitis with extensive phlegmon. Infectious disease was consulted during hospitalization for evaluation. Patient received a PICC line and will require IV antibiotics at the time of discharge. Interventional radiology was consulted for possible drainage of phlegmon but was unable to perform secondary to extensive abscess with loculations. The patient underwent robotic lysis of adhesions and drainage of peritoneal fluid on 07/22/[address] Cline. Patient was found to have localized phlegmon right lower quadrant of concrete consistency prohibiting dissection into the appendix. The patient was deemed stable for discharge today per Dr. Cline. He is to be discharged home on IV antibiotics. He'll follow-up with Dr. Cline outpatient and will require eventual appendectomy. Discharge Diagnosis: 1. Abdominal pain 2. Acute ruptured appendicitis with extensive phlegmon 3. Leukocytosis Nurse practitioner note has been reviewed by physician. Signing provider agrees with the documented findings, assessment, and plan of care. Patient Condition at Discharge: Stable Plan - Discharge Summary Discharge Rx Participant: No New Discharge Prescriptions: New Acetaminophen Tab [Tylenol Tab] 650 mg PO Q4H PRN #30 tablet PRN Reason: Pain No Action Cholecalciferol (Vitamin D3) [Vitamin D3] 2,000 unit PO DAILY Discharge Medication List Cholecalciferol (Vitamin D3) [Vitamin D3] 2,000 unit PO DAILY 07/20/19 [History] Acetaminophen Tab [Tylenol Tab] 650 mg PO Q4H PRN #30 tablet 07/25/19 [Rx] Follow up Appointment(s)/Referral(s): Rosalie Cline MD [STAFF PHYSICIAN] - 08/09/19 4:30 pm [facility], [NON-STAFF] - [facility] [Primary Care Provider] - 07/29/19 8:00 am [facility], [REFERRING] - Sherita Mercedes MD [STAFF PHYSICIAN] - 1 Week (Office will schedule follow up date at first IV infusion appointment) Patient Instructions/Handouts: Peripherally Inserted Central Catheters and Midline Catheters (DC), Laparoscopic Appendectomy (DC) Activity/Diet/Wound Care/Special Instructions: MAY BE DISCHARGED WHEN ANTIBIOTIC ARRANGEMENTS ARE FINALIZED IV antibiotics are being supplied through [facility] and will be delivered on: 07/27/19 in the morning. [facility] will meet patient at home the morning after discharge to begin IV infusions. Discharge Disposition: HOME WITH HOME HEALTH SERVICES <Rosalie Cline - Last Filed: 07/28/19 17:25> Providers Date of admission: 07/20/19 13:34 Attending physician: Rosalie Cline Consults: 07/20/19 16:58 Consult Physician Routine Consulting Provider: Sherita Mercedes Consult Reason/Comments: Ruptured appendicitis Do you want consulting provider notified?: Yes Primary care physician: [facility] - Discharge Diagnosis(es) (1) Sepsis Status: Acute (2) Ileus Status: Acute (3) Acute phlegmonous appendicitis Status: Acute (4) Abscess, appendix Status: Acute (5) Intra-abdominal abscess Status: Acute (6) Leukocytosis Status: Acute (7) Nausea Status: Acute (8) Ruptured appendicitis Status: Acute (9) Vomiting Status: Acute (10) Iron deficiency anemia due to dietary causes Status: Acute (11) Iron deficiency Status: Acute Hospital Course: Patient presented with prolonged course of right lower quadrant abdominal pain following ruptured appendicitis. He presented with leukocytosis including ileus, abdominal pain, phlegmon, elevated white count consistent with sepsis, and severe iron deficiency anemia. While inpatient, patient was given IV antibiotics and intravenous iron. He was taken to the operating room where fluid cultures were obtained to guide antibiotic management. Interval appendectomy was described secondary to extensive inflammation in the abdomen. All surgical options reviewed with the patient and family. Infectious disease team was following the patient regarding antibiotic treatment and care
--- NOTE | 2019-07-25 23:20 | PN ---
PROGRESS NOTE DATE OF SERVICE: 07/25/2019. REASON FOR FOLLOWUP: Ruptured appendicitis with abscess. INTERVAL HISTORY: The patient was seen on rounds this morning. The patient has been afebrile, has been breathing comfortably. Denies having any chest pain. No cough. No nausea, vomiting. No abdominal pain. No diarrhea. PHYSICAL EXAMINATION: Blood pressure is 103/69 with a pulse of 60. Temperature 98.4. He is 98% on room air. General description is a middle-aged male lying in bed in no distress. Respiratory system: Unlabored breathing and is clear to auscultation anteriorly. Heart S1, S2. Regular rate and rhythm. ABDOMEN: Soft, no tenderness. LABS: No new labs have been obtained today. The abdominal culture so far negative. DIAGNOSTIC IMPRESSION AND PLAN: Patient with ruptured appendicitis with abdominal abscess. The patient did have a laparoscopic guided drainage of some abdominal fluid, culture, which has been negative so far. The patient is on Zosyn transition to Invanz 1 g daily for 2 weeks and with plan for repeat CT before completing his antibiotic. Currently waiting for the discharge antibiotic arrangement and continue supportive care. MMODL / IJN: [id number] /
[2019-07-26] MEDS: SODIUM CHLORIDE 0.9% 1,000 ML IV SCH ×3 (03:11→08:42)
[2019-07-26] MEDS: PIPERACILLIN-TAZOBACTAM 3.375 GM in SODIUM CHLORIDE 0.9% 100 ML IVPB SCH (03:11)
[2019-07-26] MEDS: ENOXAPARIN 30 MG/0.3 ML SYRINGE SQ SCH (06:52)
[2019-07-26 07:42] LABS: African American GFR (CKD) >90 (>60 ml/min/1.73 sqM); Anion Gap 7 mmol/L; Blood Urea Nitrogen 12 mg/dL (9-20); Calcium 8.9 mg/dL (8.4-10.2); Carbon Dioxide 30 mmol/L (22-30); Chloride 104 mmol/L (98-107); Glucose 85 mg/dL (74-99); Potassium 4.7 mmol/L (3.5-5.1); Sodium 141 mmol/L (137-145)
[2019-07-26 07:43] LABS: Basophils # (A) 0.1 k/uL (0-0.2); Basophils % (A) 1 %; Eosinophils # (A) 0.3 k/uL (0-0.7); Eosinophils % (A) 3 %; HCT 40.1 % (39.0-53.0); HGB 12.6 gm/dL (13.0-17.5); Hypochromasia Moderate; Lymphocytes # (A) 1.4 k/uL (1.0-4.8); Lymphocytes % (A) 14 %; MCH 27.3 pg (25.0-35.0); MCHC 31.4 g/dL (31.0-37.0); MCV 86.8 fL (80.0-100.0); Mean Platelet Volume 6.4; Monocytes # (A) 0.4 k/uL (0-1.0); Monocytes % (A) 4 %; Neutrophils # (A) 7.5 k/uL (1.3-7.7); Neutrophils % (A) 76 %; Platelet Count 356 k/uL (150-450); RBC 4.62 m/uL (4.30-5.90); RDW 12.6 % (11.5-15.5); WBC 9.9 k/uL (3.8-10.6)
[2019-07-26 08:19] VITALS: RESP 16
[2019-07-26] MEDS ORDERED: ERTAPENEM 1 GM in SODIUM CHLORIDE 0.9% 50 ML IVPB SCH (09:00)
[2019-07-26 09:09] LABS: C Reactive Protein 20.2 mg/L (<10.0)
--- NOTE | 2019-07-26 13:44 | P.PN ---
Progress Note - Text Progress Note Date: 07/26/19 Patient examined this morning with Dr. Cline. Patient doing well. Denies abdominal pain. Vital signs stable. Patient remains stable for discharge pending insurance authorization for outpatient IV antibiotics.
[2019-07-26 14:50] VITALS: BP 113/70; PULSE 68; TEMP 98.6
--- NOTE | 2019-07-26 16:02 | PN ---
PROGRESS NOTE DATE OF SERVICE: 07/26/2019 REASON FOR FOLLOWUP: Intraabdominal abscess from ruptured appendicitis. INTERVAL HISTORY: The patient is currently afebrile. The patient has been breathing comfortably. The patient is for a short course of outpatient IV antibiotic therapy. Denies having any chest pain or shortness of breath or cough. No nausea or diarrhea. PHYSICAL EXAMINATION: Blood pressure is 121/77 with a pulse of 85, temperature 98.2. She is 99% on room air. General description is a middle-aged male lying in bed in no distress. RESPIRATORY SYSTEM: Unlabored breathing. Clear to auscultation anteriorly. HEART: S1, S2. Regular rate and rhythm. ABDOMEN: Soft. No tenderness. LABS: White count 9.9. CRP is 20. DIAGNOSTIC IMPRESSION AND PLAN: Patient with an abdominal abscess from a ruptured appendicitis, status post laparoscopic drainage. Cultures so far negative for any resistant pathogen. Patient is currently covered with Zosyn Invanz 1 gram daily for [address] at that point and monitor his clinical course closely. Continue with supportive care. MMODL / IJN: [id number] /
== END 2019-07-26 16:50 | disposition home health service (06) | DRG 871 ==
LOC: EC 09:10 → 4SSUR 13:34
PROVIDERS: ADMIT Surgery Plastic and Reconstructive Surgery; ATTEND Surgery Plastic and Reconstructive Surgery
PROC: 02HV33Z Insertion of Infusion Device into Superior Vena Cava, Percutaneous Approach (ICD-10-PCS; 2019-07-21)
PROC: 0W9G4ZZ Drainage of Peritoneal Cavity, Percutaneous Endoscopic Approach (ICD-10-PCS; principal; 2019-07-22 15:30)
PROC: 8E0W4CZ Robotic Assisted Procedure of Trunk Region, Percutaneous Endoscopic Approach (ICD-10-PCS; principal; 2019-07-22 15:30)
DX: A41.9 Sepsis, unspecified organism (principal); K35.33 Acute appendicitis with perforation, localized peritonitis, and gangrene, with abscess; K56.7 Ileus, unspecified; E55.9 Vitamin D deficiency, unspecified; D50.8 Other iron deficiency anemias
CPT/HCPCS: 36415; 36573; 74177; 76705; 80048; 80053; 81001; 82150; 82728; 83540; 83550; 83605; 83690; 85025; 85045; 85610; 86140; 87040; 87070; 87205; 89050; 96361; 96365; 96375; 99285

== ENCOUNTER → 2019-08-23 | Outpatient (CLI) | payer OTHER ==
--- NOTE | 2019-08-23 10:12 | CT ---
EXAMINATION TYPE: CT abdomen pelvis w con DATE OF EXAM: 08/23/2019 COMPARISON: 07/20/2019 HISTORY: 24-year-old male Ruptured appendix TECHNIQUE: Contiguous axial scanning of the abdomen and pelvis following administration of 100 ml Iso андрей 300 IV contrast. Delayed images through the kidneys and coronal/sagittal reconstructions perform ed. CT DLP: 368.4 mGycm Automated exposure control for dose reduction was used. FINDINGS: Mild pectus excavatum deformity. Heart normal size. Lung bases clear without pleural effusion. Small amount of focal fat along the anterior falciform ligament. No other focal liver lesion or bilia ry ductal dilatation. Portal venous system is patent. Gallbladder, adrenal glands, kidneys, spleen, and pancreas appear within normal limits. No dilated small bowel, free fluid, or free air. Enlarged right lower quadrant lymph nodes measuring up to 1.2 cm, referred axial image 51 and coronal images 31 and 30. Diffuse dilatation, thickening, and mucosal hyperemia of the appendix which is thickened up to 9 mm. Mild periappendiceal fat stranding. Oral contrast progressed to the rectum. Moderate stool distends the rectum up to 5.8 cm AP. Additiona l mild to moderate scattered stool in the colon. Bladder urine distended. No abnormal fluid collection in the pelvis or pelvic lymphadenopathy. Bones: No osseous destructive process. IMPRESSION: 1. SIGNIFICANT IMPROVEMENT IN THE PREVIOUS PHLEGMON AND MULTILOCULAR FLUID PREVIOUSLY SEEN IN THE RIG HT LOWER QUADRANT AND RIGHT-SIDED PELVIS. THERE IS SOME RESIDUAL POSTINFLAMMATORY SOFT TISSUE THICKEN ING AT THE BASE OF THE APPENDIX AND A RESIDUAL FLUID-FILLED, MILDLY THICKENED APPENDIX MEASURING UP T O 9 MM. RESIDUAL INFLAMMATION VERSUS RECURRENT MILD ACUTE DIVERTICULITIS ARE IN THE DIFFERENTIAL. 2. REACTIVE RIGHT LOWER QUADRANT MESENTERIC LYMPHADENOPATHY MEASURING UP TO 1.2 CM.
== END | disposition home or self-care (01) ==
LOC: RADPROMAIN 07:00
PROVIDERS: ATTEND Surgery Plastic and Reconstructive Surgery
DX: R59.0 Localized enlarged lymph nodes (principal); M79.89 Other specified soft tissue disorders
CPT/HCPCS: 74177; Q9967 ×2

== ENCOUNTER 2019-09-09 09:03 | Day surgery (SDC) | payer OTHER ==
[2019-09-07 14:09] VITALS: BMI 20.3
[~2019-09-09 09:03] MED LIST: DEXAMETHASONE SOD PHOSPHATE 10 MG/ML 1 ML VIAL IV ONE; HYDROmorphone 0.5 MG/0.5 ML SYRINGE IVP PRN; LACTATED RINGERS 1,000 ML IV SCH; MIDAZOLAM 2 MG/2 ML VIAL IV PRN; ONDANSETRON 4 MG/2 ML VIAL IVP ONE; SCOPOLAMINE 1.5MG/72HR PATCH TRANSDERM ONE; metroNIDAZOLE-NS PMX 500 MG in SALINE 1 100ML.BAG IVPB ONE
[2019-09-09] MEDS ORDERED: ACETAMINOPHEN TAB 500 MG TAB PO STA (09:40)
[2019-09-09] MEDS ORDERED: GABAPENTIN 300 MG CAP PO STA (09:40)
[2019-09-09] MEDS ORDERED: HEPARIN SODIUM,PORCINE 5,000 UNIT/ML 1 ML VIAL SQ STA (09:41)
--- NOTE | 2019-09-09 09:46 | P.GSHP ---
History of Present Illness H&P Date: 09/09/19 CHIEF COMPLAINT: Appendicitis HISTORY OF PRESENT ILLNESS: The patient is a 24-year-old male who presents with prior ruptured appendicitis treated with antibiotics. Now he presents for surgical intervention. PAST MEDICAL HISTORY: Please see list PAST SURGICAL HISTORY: Please see list MEDICATIONS: Please see list ALLERGIES: Denies. SOCIAL HISTORY: No illicit drug use or recent tobacco use FAMILY HISTORY: Unremarkable REVIEW OF ORGAN SYSTEMS: CONSTITUTIONAL: No reports of fevers or chills. HEENT: Denies any troubles with the vision or hearing. ENDOCRINE: No reports of hypothyroidism. No diabetes. RESPIRATORY: No recent pneumonias. CARDIOVASCULAR: Denies chest pain or palpitations GI: No blood in stools or constipation. MUSCULOSKELETAL: Has occasional joint pain including back pain. NEURO: No seizure disorders or headaches. No recent stroke. PSYCH: No depression or suicidal ideation. HEMATOLOGIC: No personal or family history of DVTs or pulmonary emboli. PHYSICAL EXAM: VITAL SIGNS: Afebrile vital signs stable GENERAL: Well-developed pleasant male in no acute distress. HEENT: No scleral icterus. Extraocular movements grossly intact. Moist buccal mucosa. NECK: Supple without lymphadenopathy. CHEST: Unlabored respirations. Equal bilateral excursions. CARDIOVASCULAR: Regular rate regular rhythm rhythm. Distal 2+ pulses. ABDOMEN: Soft, nondistended. MUSCULOSKELETAL: No clubbing, cyanosis, or edema. NEURO : No focal or lateralizing signs. Cranial nerves II-12 within normal limits. PSYCH: Alert and oriented to person, place and time. SKIN: Well perfused. Good skin turgor. ASSESSMENT: 1. Acute appendicitis PLAN: 1. Will need a robotic appendectomy possible open. Benefits and risks were described. 2. Heparin for DVT prophylaxis 5000 units. 3. Antibiotic prophylaxis. Past Medical History Past Medical History: No Reported History Additional Past Medical History / Comment(s): Vitamin D deficiency History of Any Multi-Drug Resistant Organisms: None Reported Past Surgical History: No Surgical Hx Reported Additional Past Surgical History / Comment(s): I &D of Abcess Past Anesthesia/Blood Transfusion Reactions: No Reported Reaction Additional Past Anesthesia/Blood Transfusion Reaction / Comment(s): Pt has never had anesthesia Smoking Status: Never smoker - Past Family History Father Family Medical History: Unable to Obtain Mother Family Medical History: Musculoskeletal Disorder, Neurologic Disorder Additional Family Medical History / Comment(s): Mother has MS. Medications and Allergies Home Medications Medication Instructions Recorded Confirmed Type Cholecalciferol (Vitamin D3) 2,000 unit PO DAILY 07/20/19 09/07/19 History [Vitamin D3] Ciprofloxacin HCl [Cipro] 250 mg PO Q12HR 09/07/19 09/07/19 History Allergies Allergy/AdvReac Type Severity Reaction Status Date / Time No Known Allergies Allergy Verified 09/07/19 14:26
[2019-09-09] MEDS ORDERED: LIDOCAINE 1% 20 ML VIAL (10MG/ML) FOR IV START INTRADERMA ONE (10:24)
[2019-09-09 10:44] LABS: Basophils % (A) 1 %; Eosinophils # (A) 0.2 k/uL (0-0.7); Eosinophils % (A) 2 %; HCT 46.5 % (39.0-53.0); HGB 15.1 gm/dL (13.0-17.5); Lymphocytes # (A) 1.8 k/uL (1.0-4.8); Lymphocytes % (A) 27 %; MCH 27.7 pg (25.0-35.0); MCHC 32.5 g/dL (31.0-37.0); MCV 85.2 fL (80.0-100.0); Mean Platelet Volume 8.6; Monocytes # (A) 0.4 k/uL (0-1.0); Monocytes % (A) 6 %; Neutrophils # (A) 4.3 k/uL (1.3-7.7); Neutrophils % (A) 63 %; Platelet Count 263 k/uL (150-450); RBC 5.45 m/uL (4.30-5.90); RDW 14.7 % (11.5-15.5); WBC 6.8 k/uL (3.8-10.6)
[2019-09-09] MEDS ORDERED: LIDOCAINE 1% INJ 10MG/ML (20 ML MDV) ONE (10:54)
[2019-09-09] MEDS ORDERED: fentaNYL (PF) 50 MCG/ML 2 ML AMP ONE (10:54)
[2019-09-09] MEDS ORDERED: PROPOFOL 10 MG/ML 20 ML VIAL IV ONE (10:54)
[2019-09-09] MEDS ORDERED: GLYCOPYRROLATE 0.2 MG/ML 2 ML VIAL ONE (10:54)
[2019-09-09] MEDS ORDERED: NEOSTIGMINE 1 MG/ML 10 ML VIAL ONE (10:54)
[2019-09-09] MEDS ORDERED: SUCCINYLCHOLINE CHLORIDE 100 MG/5 ML SYR IV ONE (10:54)
[2019-09-09] MEDS ORDERED: ROCURONIUM BROMIDE 10 MG/ML 10 ML VIAL IV ONE (10:54)
[2019-09-09] MEDS ORDERED: KETOROLAC 30 MG/ML 1 ML VIAL ONE (10:54)
[2019-09-09] MEDS ORDERED: MIDAZOLAM 2 MG/2 ML VIAL ONE (10:54)
[2019-09-09] MEDS ORDERED: BUPIVACAIN-EPI 0.25%-1:200,000 30 ML VIAL SQ ONE ×2 (11:11→11:28)
[2019-09-09 12:59] VITALS: TEMP 97.3
--- NOTE | 2019-09-09 13:01 | P.OP ---
Date of Procedure: 09/09/19 Description of Procedure: SURGEON: ROSALIE CLINE MD Preoperative Diagnosis: 1. History of ruptured appendicitis Postoperative Diagnosis: 1. History of ruptured appendicitis Procedure(s) Performed: 1. Robotic-assisted daVinci Xi laparoscopic appendectomy Anesthesia: GETA, local Surgeon: Rosalie Cline Estimated Blood Loss (ml): 5 Pathology: other (appendix) Condition: stable Disposition: floor Operative Findings: 1. Resolving phlegmon along the right lower quadrant with acute appendicitis. 2. Terminal ileum unremarkable 3. Cecum unremarkable 4. No bilateral inguinal hernias INDICATIONS: The patient is a 24-year-old male who presents previous ruptured appendicitis treated with antibiotics. He presents today for resection. Benefits and risks, including infection, open surgery, and bleeding for additional surgery was discussed at length. Informed consent was obtained. All questions of the patient and family were answered. DESCRIPTION: The patient was transferred to the operating room and placed in supine position. The patient had previously voided. The abdomen was then prepped and draped in standard sterile fashion as Ioban was placed along the abdomen to minimize any contamination of skin floor. After a timeout protocol was performed, attention was then brought to the left upper quadrant whereby a 0 degree 5 mm laparoscopic trocar entry was performed. The abdominal cavity was entered and insufflated to 15 mmHg pressure, which was tolerated well. Diagnostic laparoscopy demonstrated no injury to bowel, viscera or mesentery. The appendix was retrocecal and extended into the right lateral abdominal wall. No evidence of perforation was found. The mid body of the appendix was dilated and inflamed with mild periappendicitis. Next a robotic 12-mm trocar was placed along the left upper quadrant, 15-cm lateral to the midline. Two 8 mm ports were placed along the left lateral abdominal wall. Ports were placed 10 cm apart from each other including 15-20 cm away from the target anatomy of the right pelvis. The patient was then placed in Trendelenburg position, at least 16 down and right side up at least 6. The robotic da Mariposa XI system was primed and docked from the left side of the patient. Using atraumatic graspers and vessel sealer, the robotic system was docked and primed as described. Instruments were interchanged by the assistant laboratory director including graspers, robotic stapler and vessel sealer. Next, attention was brought to identify the cecum. A systematic view within the abdominal cavity was started with the small bowel which was unremarkable. Resolving phlegmon along the right lower quadrant was identified. The appendix was carefully dissected free from the surrounding tissues. No inguinal hernias were identified. A 45 mm blue robotic staple loads were fired along the base of the appendix. The staple line was hemostatic. Hemostasis was checked prior to undocking the robot. The robot was undocked. I re-scrubbed into the case. The specimen was removed from the abdominal cavity with an Endo Catch bag through the 12 mm trocar. All instruments and pneumoperitoneum were evacuated from the abdominal cavity. Local anesthetic was infiltrated to all wounds for postop analgesia. All incisions were also cleansed with diluted hydrogen peroxide. The incisions were closed with 4-0 Monocryl. Exofin glue was applied to the rest of the skin incisions. The patient had tolerated the procedure well. The patient was extubated successfully. The patient was transferred to the postanesthesia care unit in stable condition. Plan - Discharge Summary Discharge Rx Participant: Yes New Discharge Prescriptions: No Action Cholecalciferol (Vitamin D3) [Vitamin D3] 2,000 unit PO DAILY Ciprofloxacin HCl [Cipro] 250 mg PO Q12HR Discharge Medication List Cholecalciferol (Vitamin D3) [Vitamin D3] 2,000 unit PO DAILY 07/20/19 [History] Ciprofloxacin HCl [Cipro] 250 mg PO Q12HR 09/07/19 [History] Follow up Appointment(s)/Referral(s): Rosalie Cline MD [STAFF PHYSICIAN] - 09/22/19 Patient Instructions/Handouts: Laparoscopic Appendectomy (DC) Activity/Diet/Wound Care/Special Instructions: No lifting over 10 pounds in 2 weeks until Sep 23. January shower. No bath tub soaks for two weeks until Sep 23. Diet as tolerated. Use Tylenol and ibuprofen scheduled for the next 24-48 hours for best pain relief. Use ice along incisions for the today to prevent swelling. Discharge Disposition: HOME SELF-CARE
[2019-09-09] MEDS ORDERED: ONDANSETRON 4 MG/2 ML VIAL IVP ONE (13:34)
[2019-09-09] MEDS ORDERED: LACTATED RINGERS 1,000 ML IV ONE (13:51)
[2019-09-09 14:40] VITALS: BP 115/76; PULSE 95; RESP 20
== END 2019-09-09 15:07 | disposition home or self-care (01) ==
LOC: OR 09:03
PROVIDERS: ATTEND Surgery Plastic and Reconstructive Surgery
DX: K35.33 Acute appendicitis with perforation, localized peritonitis, and gangrene, with abscess (principal); K36 Other appendicitis; E55.9 Vitamin D deficiency, unspecified; Z79.2 Long term (current) use of antibiotics; Z79.899 Other long term (current) drug therapy
CPT/HCPCS: 88304; 85025; 44970; J2250; J1644; J1100; J2710; J0690; J2405; J2001; J3010; J1885; J0330; J2704